=== PATIENT | female | born 1980 ===

== ENCOUNTER 2017-02-03 18:58 | Emergency (ER) | payer OTHER, SELFPAY ==
[2017-02-03 19:02] VITALS: BMI 27.3
[2017-02-03 19:05] VITALS: BP 152/87; PULSE 76; RESP 17; TEMP 97.3; O2SAT 100
[2017-02-03] MEDS ORDERED: Lidocaine 5% Patch TD STA (19:14)
--- NOTE | 2017-02-03 19:20 | ED PDOC ---
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 Aching pain, non- radiating, aggravated by flexion, no numbness or tingling, no chest pain or shortness of breath, no flank pain, no hematuria, no night sweat, no pain medication taken at home, no urinary symptoms, no urinary or bowel incontinence or retention, no other medical or psychological complaints. Past Medical History - Provider Review Nursing Documentation Reviewed: Yes - Tetanus Immunization Tetanus Immunization: Unknown - Past Medical History Past Medical History: No Previous - Psychiatric Hx Substance Use: No - Surgical History Hx Appendectomy: Yes Hx Cholecystectomy: Yes - Anesthesia Hx Anesthesia: Yes Hx Anesthesia Reactions: No Hx Malignant Hyperthermia: No - Suicidal Assessment Feels Threatened In Home Enviroment: No Family/Social History - Physician Review Nursing Documentation Reviewed: Yes Family/Social History: Unknown Family HX Smoking Status: Never Smoked Hx Alcohol Use: No Hx Substance Use: No Hx Substance Use Treatment: No Allergies/Home Meds Allergies/Adverse Reactions: Allergies morphine Allergy (Verified 02/03/17 19:03) RASH Review of Systems - Review of Systems Constitutional: absent: Fatigue, Fevers Eyes: absent: Vision Changes ENT: absent: Hearing Changes Respiratory: absent: Cough Cardiovascular: absent: Chest Pain Gastrointestinal: absent: Abdominal Pain, Nausea, Vomiting Musculoskeletal: Back Pain, Myalgias. absent: Arthralgias, Neck Pain, Joint Swelling Neurological: absent: Headache, Dizziness, Focal Weakness, Gait Changes, Speech Changes, Facial Droop, Disequilibrium, Seizure Physical Exam Vital Signs Reviewed: Yes Vital Signs Temp Pulse Resp BP Pulse Ox 02/03/17 19:04 97.3 F L 76 17 152/87 H 100 Temperature: Afebrile Blood Pressure: Normal Pulse: Regular Respiratory Rate: Normal Appearance: Positive for: Well-Appearing, Non-Toxic, Uncomfortable Pain Distress: Moderate Mental Status: Positive for: Alert and Oriented X 3 - Systems Exam Head: Present: Atraumatic, Normocephalic Pupils: Present: PERRL Extroacular Muscles: Present: EOMI Conjunctiva: Present: Normal Mouth: Present: Moist Mucous Membranes Neck: Present: Normal Range of Motion Respiratory/Chest: Present: Clear to Auscultation, Good Air Exchange. No: Respiratory Distress, Accessory Muscle Use Cardiovascular: Present: Regular Rate and Rhythm, Normal S1, S2. No: Murmurs Abdomen: Present: Normal Bowel Sounds. No: Tenderness, Distention, Peritoneal Signs Back: Present: Normal Inspection, Paraspinal Tenderness (+spasm noted on the bilateral paraspinal region of the mid thoracic region with the pain 100% reproducible. ). No: CVA Tenderness, Midline Tenderness, Pain with Leg Raise Upper Extremity: Present: Normal Inspection. No: Cyanosis, Edema Lower Extremity: Present: Normal Inspection, Normal ROM. No: Edema, CALF TENDERNESS, Deformity Neurological: Present: GCS=15, CN II-XII Intact, Speech Normal Skin: Present: Warm, Dry, Normal Color. No: Rashes Psychiatric: Present: Alert, Oriented x 3, Normal Insight, Normal Concentration Medical Decision Making ED Course and Treatment: 02/03/17 19:18 -toradol IM/valium 5mg po/lidoderm patch -there is no emergent indication of radiology or laboratory studies indicated at this time. -observe and reassess 02/03/17 20:05 -Urine hcg negative -Pt. feels much better, no focal neurological deficits, walking with normal gait and posture. -Discharge home with ibuprofen, flexeril, lidoderm patch, heat compression, follow up with your own pmd and pain management within 2 days, return to the ER for any new or worsening signs or symptoms. - Medication Orders Current Medication Orders: Discontinued Medications Diazepam (Valium) 5 mg PO ONCE ONE PRN Reason: Protocol Stop: 02/03/17 19:16 Last Admin: 02/03/17 19:36 Dose: 5 MG Behavioural Document 02/03/17 19:36 SE (Rec: 02/03/17 19:36 SE [id number]) Maintenance Maintenance Dose No Nonmedicinal Nonmedicinal Interventions See nurse's notes Comment muscle relaxant Behavior Behavior for Medication: Anxiety Behavior Comment muscle relaxant Ketorolac Tromethamine (Toradol) 60 mg IM STAT STA Stop: 02/03/17 19:15 Last Admin: 02/03/17 19:36 Dose: 60 MG IM Administration Charges Document 02/03/17 19:36 SE (Rec: 02/03/17 19:37 SE [id number]) Injection Site MAR Injection Site Right Vastus Lateralis Charges for Administration # of IM Administrations 1 Lidocaine (Lidoderm) 1 ea TD STAT STA Stop: 02/03/17 19:15 Last Admin: 02/03/17 19:36 Dose: 1 EA Comments: lower back MAR Transdermal Patch Site Document 02/03/17 19:36 SE (Rec: 02/03/17 19:36 SE [id number]) Transdermal Patch Site Transdermal Patch Site Left Lower Back - PA / [employer] / Resident Statement / has reviewed & agrees with the documentation as recorded. Disposition/Present on Arrival - Present on Arrival Any Indicators Present on Arrival: No History of DVT/PE: No History of Uncontrolled Diabetes: No Urinary Catheter: No History of Decub. Ulcer: No History Surgical Site Infection Following: None - Disposition Have Diagnosis and Disposition been Completed?: Yes Diagnosis: Spasm of back muscles Disposition: HOME/ ROUTINE Disposition Time: 19:20 Patient Plan: Discharge Patient Problems: Current Active Problems Problem Status Diagnosed Spasm of back muscles Acute Condition: IMPROVED Discharge Instructions (ExitCare): Muscle Spasm (ED) Print Language: OCCITAN Additional Instructions: -Discharge home with ibuprofen, flexeril, lidoderm patch, heat compression, follow up with your own pmd and pain management within 2 days, return to the ER for any new or worsening signs or symptoms. Prescriptions: Cyclobenzaprine [Cyclobenzaprine HCl] 10 mg PO TID PRN #21 tab PRN Reason: Other Lidocaine 5% [Lidoderm] 1 patch TP DAILY PRN #7 patch PRN Reason: Other Ibuprofen [Motrin Tab] 800 mg PO TID PRN #21 tab PRN Reason: Other Referrals: Cesilia Hardin DO [Primary Care Provider] - Follow up with primary Santiago Petersen MD [Staff Provider] - Follow up with primary Forms: WORK NOTE
== END 2017-02-03 20:12 | disposition home or self-care (01) ==
LOC: ED 18:58
DX: M62.830 Muscle spasm of back (principal)
CPT/HCPCS: 96372; 99284; J1885

== ENCOUNTER 2018-09-23 16:46 | Emergency (ER) | payer MEDICAID, OTHER ==
[2018-09-23 16:50] VITALS: BMI 27.3
--- NOTE | 2018-09-23 17:25 | ED PDOC ---
Arrival/HPI - General Historian: Patient - History of Present Illness Narrative History of Present Illness (Text): 09/23/18 17:19 37yo female with no pmhx who present with complaint of painful lump to her right breast. States she noticed the lump today. States she saw her PMD and was given a referral for breast US, but she came to ED secondary to the pain. States she did not take any pain medication. Reports warmness of the breast. States she is currently finishing her Period. Denies breast feeding, familial history of breast CA, fever, chills, any other complaint. Past Medical History - Provider Review Nursing Documentation Reviewed: Yes - Tetanus Immunization Tetanus Immunization: Unknown - Past Medical History Past Medical History: No Previous - Psychiatric Hx Substance Use: No - Surgical History Hx Appendectomy: Yes Hx Cholecystectomy: Yes - Anesthesia Hx Anesthesia: Yes Hx Anesthesia Reactions: No Hx Malignant Hyperthermia: No - Suicidal Assessment Feels Threatened In Home Enviroment: No Family/Social History - Physician Review Nursing Documentation Reviewed: Yes Family/Social History: Unknown Family HX Smoking Status: Never Smoked Hx Alcohol Use: No Hx Substance Use: No Hx Substance Use Treatment: No Allergies/Home Meds Allergies/Adverse Reactions: Allergies morphine Allergy (Verified 02/03/17 19:03) RASH Review of Systems - Physician Review All systems were reviewed & negative as marked: Yes - Review of Systems Constitutional: Normal Eyes: Normal ENT: Normal Respiratory: Normal Cardiovascular: Normal, Other (Right breast pain) Gastrointestinal: Normal Genitourinary Female: Normal Musculoskeletal: Normal Skin: Normal Neurological: Normal Endocrine: Normal Hemo/Lymphatic: Normal Psychiatric: Normal Physical Exam Vital Signs Reviewed: Yes Temperature: Afebrile Blood Pressure: Normal Pulse: Regular Respiratory Rate: Normal Appearance: Positive for: Well-Appearing, Non-Toxic, Comfortable Pain Distress: None Mental Status: Positive for: Alert and Oriented X 3 - Systems Exam Head: Present: Atraumatic, Normocephalic Pupils: Present: PERRL Extroacular Muscles: Present: EOMI Conjunctiva: Present: Normal Mouth: Present: Moist Mucous Membranes Neck: Present: Normal Range of Motion Respiratory/Chest: Present: Clear to Auscultation, Good Air Exchange. No: Respiratory Distress, Accessory Muscle Use Cardiovascular: Present: Regular Rate and Rhythm, Normal S1, S2. No: Murmurs Abdomen: No: Tenderness, Distention, Peritoneal Signs Breast/Axillary: Present: Symmetrical, Tender to Palpation (Tender nodule noted at 11 o clock position of the right breast with overlaying warmth. No Erythema.). No: Axillary Lymphad, Discoloration, Erythema, Nipple Discharge, Swelling Back: Present: Normal Inspection Upper Extremity: Present: Normal Inspection. No: Cyanosis, Edema Lower Extremity: Present: Normal Inspection. No: Edema Neurological: Present: GCS=15, CN II-XII Intact, Speech Normal Skin: Present: Warm, Dry, Normal Color. No: Rashes Psychiatric: Present: Alert, Oriented x 3, Normal Insight, Normal Concentration Medical Decision Making ED Course and Treatment: 09/23/18 17:41 37yo female who present with stated history. She is hemodynamically stable and in no distress. Painful nodule was noted on right breast. She already have a referral for a breast US that was given by her PMD today She noted she came to ED for the pain. She denies familial history of breast CA. She was treated with Toradol and Amoxicillin in ED and was DC home with Ibuprofen and amoxicillin for breast lump/mastitis. 09/23/18 17:46 I spoke with Minerva from US and she advised that pt call they dept tomorrow morning to verify if the US can be done tomorrow. PT was given the US info and advised to call tomorrow morning and f/u. Disposition/Present on Arrival - Present on Arrival Any Indicators Present on Arrival: No History of DVT/PE: No History of Uncontrolled Diabetes: No Urinary Catheter: No History Surgical Site Infection Following: None - Disposition Have Diagnosis and Disposition been Completed?: Yes Diagnosis: Breast lump in female, Mastitis Disposition: HOME/ ROUTINE Disposition Time: 17:30 Patient Plan: Discharge Condition: STABLE Discharge Instructions (ExitCare): Breast Ultrasound Additional Instructions: Call the [facility] department tomorrow tomorrow for your breast US [phone] Take medication as directed and follow up with your Doctor Return to ED for worsening symptoms Prescriptions: RX: Amoxicillin 500 mg PO TID #21 tablet RX: Ibuprofen [Motrin Tab] 600 mg PO Q6 #15 tab Referrals: Ye Evans MD [Staff Provider] - Follow up with primary
[2018-09-23 18:37] VITALS: BP 131/94; PULSE 77; RESP 16; TEMP 98.2; O2SAT 100
== END 2018-09-23 18:43 | disposition home or self-care (01) ==
LOC: ED 16:46
DX: N63.0 Unspecified lump in unspecified breast (principal); N61.0 Mastitis without abscess
CPT/HCPCS: 96372; 99284; J1885